=== PATIENT | female | born 1985 | race Caucasian/White ===

== ENCOUNTER → 2018-05-20 | Outpatient (CLI) | payer BC ==
[~2018-05-20] MED LIST: CLONAZEPAM0.5 MG PO; TRINTELLIX PO; ULTRAM50 MG PO
[2018-05-20 14:59] LABS: BASOPHILS % 0.4 % (0.0-1.0); EOSINOPHILS # (AUTO) 0.1 (0.0-0.4); EOSINOPHILS % 1.3 % (0.0-6.0); HEMATOCRIT 40.7 % (34.2-44.1); HEMOGLOBIN 13.6 g/dL (12.0-16.0); LYMPHOCYTES # (AUTO) 2.2 (1.0-3.2); LYMPHOCYTES % 26.5 % (18.0-39.1); MEAN CORPUSCULAR HEMOGLOBIN 31.5 pg (28-32); MEAN CORPUSCULAR HGB CONC 33.4 g/dL (31-35); MEAN CORPUSCULAR VOLUME 94.2 fL (81-99); MONOCYTES # (AUTO) 0.7 (0.2-0.8); MONOCYTES % 7.8 % (4.4-11.3); NEUTROPHILS # (AUTO) 5.3 (2.1-6.9); NEUTROPHILS % 63.3 % (38.7-80.0); PLATELET COUNT 211 x10e3/uL (140-360); RED BLOOD COUNT 4.32 x10e6/uL (3.6-5.1); RED CELL DISTRIBUTION WIDTH 12.4 % (11.7-14.4)
[2018-05-20 15:16] LABS: ALANINE AMINOTRANSFERASE 31 IU/L (0-55); ALBUMIN 3.9 g/dL (3.5-5.0); ALBUMIN/GLOBULIN RATIO 1.2 (0.8-2.0); ALKALINE PHOSPHATASE 59 IU/L (40-150); ANION GAP 12.9 mmol/L (8-16); BLOOD UREA NITROGEN 17 mg/dL (7-26); BUN/CREATININE RATIO 21 (6-25); CALCIUM 9.4 mg/dL (8.4-10.2); CARBON DIOXIDE 26 mmol/L (22-29); CHLORIDE 104 mmol/L (98-107); CREATININE, SERUM 0.81 mg/dL (0.57-1.11); EST GLOMERULAR FILTRATION RATE > 60 ML/MIN (60-); GLUCOSE 78 mg/dL (74-118); POTASSIUM 3.9 mmol/L (3.5-5.1); SODIUM 139 mmol/L (136-145)
== END ==
LOC: WCC 14:07
PROVIDERS: ATTEND Family Medicine
DX: Z13.9 Encounter for screening, unspecified (principal)
CPT/HCPCS: 36415; 80053; 84550; 85025; 85651; 86039

== ENCOUNTER 2018-12-23 12:37 | Emergency (ER) | payer BC ==
[~2018-12-23] VITALS: Ht 172.7 cm; Wt 104.3 kg
--- OUTSIDE RECORDS SUMMARY | 2018-12-23 13:04 | XMS REPORT | Continuity of Care Document ---
Author Author Johann [facility]nandez[facility] Interface Address Unknown Phone Unavailable Problems Problem Status Onset Date Classification Date Reported Comments Source Discharge Diagnosis: Left leg pain 09/26/2017 09/29/2017 [facility] Discharge Diagnosis: Fall 09/26/2017 09/29/2017 [facility] Discharge Diagnosis: Hip pain, left 09/26/2017 09/29/2017 [facility] FALL Active 09/25/2017 [facility] Medications Medication Details Route Status Patient Instructions Ordering Provider Order Date Source naproxen 500 mg oral tablet 500 mg=1 tab, PO, Q12H, PRN Pain, with food, X 10 day, # 20 tab, 0 Refill(s) Active 09/26/2017 [facility] cyclobenzaprine 5 mg oral tablet 5 mg=1 tab, PO, TID, PRN Muscle spasm, X 10 day, # 30 tab, 0 Refill(s) Active 09/26/2017 [facility] Ibuprofen 600 mg, 1 tab, Route: PO, Drug form: TAB, ONCE, Dosing Weight 115.227, kg, Priority: STAT, Start date: 09/25/17 23:39:00 BOAT CLEANER, Stop date: 09/25/17 23:39:00 CSTNotes: (Same as: Motrin) "Do Not Crush" Take with food. No Longer Active 09/26/2017 [facility] Acetaminophen 325 MG / Hydrocodone Bitartrate 5 MG Oral Tablet 1 tab, Route: PO, Drug Form: TAB, Dosing Weight 115.227, kg, ONCE, STAT, Start date: 09/25/17 23:39:00 BOAT CLEANER, Stop date: 09/25/17 23:39:00 CSTNotes: (Same as: [place] 325/5) Do not exceed 4gm/day of acetaminophen. No Longer Active 09/26/2017 [facility] Allergies, Adverse Reactions, Alerts Substance Category Reaction Severity Reaction type Status Date Reported Comments Source Immunizations Immunization Date Given Site Status Last Updated Comments Source Results Order Name Results Value Reference Range Date Interpretation Comments Source URINE CHEM U Preg Negative (09/26/17 12:53 AM) Negative 09/26/2017 [facility] Ankle 3 views DX Ankle 3 views DX Study: 3 views of left ankle joint History: Fall Comments: Normal bone mineralization. No acute fracture or dislocation. No radiopaque foreign bodies. IMPRESSION: No acute fracture or dislocation. 09/26/2017 - - Read by: Elise Gaviria MD Dictated Date/time: 09/26/17 00:43 Electronically Signed by: Elise Gaviria MD 09/26/17 00:45 FINAL REPORT [facility] Knee series 3 views DX Knee series 3 views DX Study: 3 views of left knee joint History: Fall Comments: Normal bone mineralization. No acute fracture or dislocation. No radiopaque foreign bodies. IMPRESSION: No acute fracture or dislocation. 09/26/2017 - - Read by: Elise Gaviria MD Dictated Date/time: 09/26/17 00:43 Electronically Signed by: Elise Gaviria MD 09/26/17 01:35 FINAL REPORT [facility] Femur series DX Femur series DX Study: 2 views of left femur History: Fall Comments: Normal bone mineralization. No acute fracture No radiopaque foreign bodies. IMPRESSION: Intact left femur 09/26/2017 - - Read by: Elise Gaviria MD Dictated Date/time: 09/26/17 00:48 Electronically Signed by: Elise Gaviria MD 09/26/17 00:53 FINAL REPORT [facility] Hip 2/3 views uni DX Hip 2/3 views uni DX Study: Frontal view of pelvis and 2 views of left hip joint History: Fall Comments: Normal bone mineralization. No acute fracture or dislocation. No radiopaque foreign bodies. IMPRESSION: No acute fracture or dislocation. 09/26/2017 - - Read by: Elise Gaviria MD Dictated Date/time: 09/26/17 00:48 Electronically Signed by: Elise Gaviria MD 09/26/17 00:59 FINAL REPORT [facility] Vital Signs Vital Sign Value Date Comments Source Systolic (mm Hg) 127 09/26/2017 [facility] Diastolic (mm Hg) 83 09/26/2017 [facility] Respitory Rate 16 09/26/2017 [facility] Heart Rate 80 09/26/2017 [facility] Weight 115.227 09/26/2017 [place] Height 172.72 cm 09/26/2017 [place] Temperature Oral (F) 97.8 F 09/26/2017 [place] BMI Calculated 38.63 09/26/2017 [place] Respitory Rate 18 09/26/2017 [place] Heart Rate 87 09/26/2017 [place] Systolic (mm Hg) 140 09/26/2017 [place] Diastolic (mm Hg) 94 09/26/2017 [facility] Encounters Location Location Details Encounter Type Encounter Number Reason For Visit Attending Provider ADM Date DC Date Status Source [facility] Emergency [id number] Steve Preciado 09/26/2017 09/26/2017 [facility] Procedures Procedure Code Date Perfomer Comments Source
--- OUTSIDE RECORDS SUMMARY | 2018-12-23 13:04 | XMS REPORT | Summary of Care ---
Author Author [facility] Organization [facility] Address Unknown Phone Unavailable Encounter SAIGE Stewart(BLAYNE) [id number] Date(s): 09/25/17 - 09/26/[address] [address]- Discharge Diagnosis: Left leg pain Discharge Diagnosis: Fall Discharge Diagnosis: Hip pain, left Discharge Disposition: Home or Self Care Attending Physician: Steve Preciado DO Vital Signs Most recent to 1 2 oldest [Reference Range]: Height 172.72 cm (09/25/17 11:33 PM) Temperature Oral 97.8 DegF [96.4-99.1 DegF] (09/25/17 11:33 PM) Blood Pressure 127/83 mmHg 140/94 mmHg [90-140/60-90 mmHg] (09/26/17 2:06 AM) (09/25/17 11:33 PM) Respiratory Rate 16 BRMIN 18 BRMIN [14-20 BRMIN] (09/26/17 2:06 AM) (09/25/17 11:33 PM) Peripheral Pulse 80 bpm 87 bpm Rate [60-100 bpm] (09/26/17 2:06 AM) (09/25/17 11:33 PM) Weight 115.227 kg (09/25/17 11:33 PM) Body Mass Index 38.63 m2 (09/25/17 11:33 PM) Problem List No data available for this section Allergies, Adverse Reactions, Alerts Substance Reaction Severity Status NKDA Active Medications acetaminophen-hydrocodone 325 mg-5 mg oral tablet 1 tab, Route: PO, Drug Form: TAB, Dosing Weight 115.227, kg, ONCE, STAT, Start d ate: 09/25/17 23:39:00 SUPERINTENDENT RECREATION, Stop date: 09/25/17 23:39:00 SUPERINTENDENT RECREATION Notes: (Same as: [place] 325/5) Do not exceed 4gm/day of acetaminophen. Start Date: 09/25/17 Stop Date: 09/26/17 Status: Completed cyclobenzaprine 5 mg oral tablet 5 mg=1 tab, PO, TID, PRN Muscle spasm, X 10 day, # 30 tab, 0 Refill(s) Start Date: 09/26/17 Stop Date: 10/06/17 Status: Ordered ibuprofen 600 mg, 1 tab, Route: PO, Drug form: TAB, ONCE, Dosing Weight 115.227, kg, Prior ity: STAT, Start date: 09/25/17 23:39:00 SUPERINTENDENT RECREATION, Stop date: 09/25/17 23:39:00 SUPERINTENDENT RECREATION Notes: (Same as: Motrin)"Do Not Crush" Take with food. Start Date: 09/25/17 Stop Date: 09/26/17 Status: Completed naproxen 500 mg oral tablet 500 mg=1 tab, PO, Q12H, PRN Pain, with food, X 10 day, # 20 tab, 0 Refill(s) Start Date: 09/26/17 Stop Date: 10/06/17 Status: Ordered Results URINE CHEM Most recent to 1 oldest [Reference Range]: U Preg [Negative] Negative (09/26/17 12:53 AM) Immunizations No data available for this section Procedures No data available for this section Social History Social History Type Response Smoking Status Never smoker; Exposure to Tobacco Smoke None; Cigarette Smoking Last 365 Days No; Reg Smoking Cessation Counseling No Assessment and Plan No data available for this section
[2018-12-23] MEDS ORDERED: ALBUTEROL/IPRATROPIUM 3 ML NEB NEB ONE (13:15)
[2018-12-23] MEDS ORDERED: PENICILLIN G BENZATHINE LA 1.2 MU TBX IM STA (13:27)
--- NOTE | 2018-12-23 13:46 | Diagnostic Imaging Report ---
EXAMINATION: CXR 2 VIEW - HOPD INDICATION: Body aches, cough COMPARISON: None FINDINGS: TUBES and LINES: None. LUNGS: Lungs are well inflated. Lungs are clear. There is no evidence of pneumonia or pulmonary edema. PLEURA: No pleural effusion or pneumothorax. HEART AND MEDIASTINUM: The cardiomediastinal silhouette is unremarkable. BONES AND SOFT TISSUES: No acute osseous abnormality. UPPER ABDOMEN: No free air under the diaphragm. IMPRESSION: No acute radiographic abnormality. Signed by: Dr. Adan Hankins MD on 12/23/2018 1:43 PM
[2018-12-23] MEDS ORDERED: PROMETHAZINE-D118 ML PO (14:52)
[2018-12-23] MEDS ORDERED: PREDNISONE20 MG PO (14:54)
== END 2018-12-23 14:30 | disposition home or self-care (01) ==
LOC: FSED 13:04
DX: R50.9 Fever, unspecified (principal); R05 Cough; J02.0 Streptococcal pharyngitis; J98.01 Acute bronchospasm
CPT/HCPCS: 71046; 83518; 87400; 99284; J0561

== ENCOUNTER → 2019-01-10 | Outpatient (CLI) | payer BC ==
[~2019-01-10] MED LIST changes: +ALBUTEROL0.63 MG/3 IH; +IOPAMIDOL 370 MG/ML 200 ML INFUS..BTL INJ ONE; +PREDNISONE20 MG PO; +PROMETHAZINE-D118 ML PO; +SODIUM CHLORIDE 0.9% 50ML 50 ML ONE; +inhaler IH
[2019-01-10 15:37] LABS: BLOOD UREA NITROGEN 12 mg/dL (7-26); BUN/CREATININE RATIO 16 (6-25); CREATININE, SERUM 0.77 mg/dL (0.57-1.11); EST GLOMERULAR FILTRATION RATE > 60 ML/MIN (60-)
--- NOTE | 2019-01-10 18:53 | Diagnostic Imaging Report ---
History: Lump in the right side of the neck, painful, difficult to swallow Comparison studies: None Technique: Axial, coronal and sagittal images from the skull base to the thoracic inlet. Coronal and sagittal images reconstructed from the axial data. Dose modulation, iterative reconstruction, and/or weight based adjustment of the mA/kV was utilized to reduce the radiation dose to as low as reasonably achievable. Intravenous contrast: 100 cc of Omnipaque 300. Findings: Airway: Patent. Soft tissues: Incidental 1 cm exophytic skin lesion in the right anterior cervical skin (series 3, image 53) is nonspecific Lymph nodes: No radiographically significant adenopathy. Vessels: Arteries and veins are patent. Glands (thyroid, parotid and submandibular): Normal in size and symmetric. No masses. Orbits: No abnormalities. Paranasal sinuses: Clear. Temporal bones: No abnormalities. Skull base and facial bones: Intact. Cervical spine: Reversal of the cervical lordosis centered at C5. Otherwise, no abnormalities. IMPRESSION: 1. No cervical abnormalities to explain patient's symptoms. 2. Incidental superficial lesion in the right anterior cervical skin should be visible on physical exam. Signed by: Dr. Brown Yeboah M.D. on 01/10/2019 6:50 PM
--- NOTE | 2019-01-12 17:29 | Operative Report ---
DATE OF PROCEDURE: 01/12/2019 SURGEON: Juni Young MD PREOPERATIVE DIAGNOSIS: Chronic tonsillitis. POSTOPERATIVE DIAGNOSIS: Chronic tonsillitis with asymmetric tonsil, right side being larger. OPERATIVE PROCEDURE: Tonsillectomy. ANESTHESIOLOGIST: Chepe Patricio M.D. INDICATIONS: This 33-year-old female has long standing history of chronic tonsillitis with recurrent sore throat. The patient also has asymmetric tonsil, right side being bigger for the past few years. She has been treated with multiple antibiotics with no improvement. A CT scan of the neck that was done before surgery, did not show any other abnormalities such as carotid aneurysm or other lymphadenopathy. It was decided that tonsillectomy and other necessary procedure will be beneficial for her. DESCRIPTION OF PROCEDURE: The patient was taken to the operating room, put under general anesthesia, endotracheally intubated. The patient was put in Kimber's position. McIvor mouth gag was inserted. Tonsillar fossas were injected with 0.5% Marcaine with 1:200,000 epinephrine. The right tonsil was retracted medially. A plane was created between the tonsil and tonsillar bed. Dissection was carried down to the inferior pole. Tonsil was . Similar procedure was carried out on the contralateral side. Hemostasis on tonsillar fossas were achieved using the suction cautery. Nasopharynx, oropharynx, and oral cavity were irrigated with copious amount of normal saline. The stomach was suctioned out at the end of the procedure. The patient tolerated above procedure well with estimated blood loss of about 100 mL. She was given 20 mg of Decadron intraoperatively. The patient was able to retransfer to recovery room in stable condition. Juni Young MD DKH/MODL /[id number] cc: Selwyn Ruiz MD
== END ==
LOC: CT 14:43
PROVIDERS: ATTEND Otolaryngology Otolaryngology/Facial Plastic Surgery
DX: R22.0 Localized swelling, mass and lump, head (principal)
CPT/HCPCS: 36415; 70491; 81025; 82565; 84520; Q9967

== ENCOUNTER → 2019-01-12 | Day surgery (SDC) | payer BC ==
[~2019-01-12] MED LIST changes: +ACETAMINOPHEN 1000 MG/100 ML IV ONE; +BUPIVACAINE 0.5%/EPI 30 ML SDV INJ ONE; +DEXAMETHASONE SOD PHOS 10 MG/1 ML VIAL ONE; +FENTANYL CITRATE/PF 100MCG/2 ML INJ ONE; +GLYCOPYRROLATE INJ 1MG/ 5 ML SYR ONE; +HYDROMORPHONE 2MG/ML 2 MG/ML ML ONE; -IOPAMIDOL 370 MG/ML 200 ML INFUS..BTL INJ ONE; +LIDOCAINE HCL 2% LOCAL INJ 5 ML SDV VIAL INJ ONE; +MIDAZOLAM HCL 2 MG/2 ML VIAL ONE; +NEOSTIGMINE 5 MG/5ML SYR ONE; +ONDANSETRON HCL INJ 2MG/ML 2ML 2 MG/ML VIAL ONE; +PROPOFOL IV EMULSION 10 MG/ML 20 ML VIAL ONE; +ROCURONIUM BROMIDE 10 MG/ML 5ML VIAL ONE; +SEVOFLURANE INHAL SOLN 250 ML PEN BTL ONE; -SODIUM CHLORIDE 0.9% 50ML 50 ML ONE
--- OUTSIDE RECORDS SUMMARY | 2019-01-12 06:42 | XMS REPORT ---
Author Author [facility] Address Unknown Phone Unavailable Care Team Providers Care Public Relations Name Role Phone Lacey HAYES Unavailable Unavailable Abhay AVALOS Unavailable Unavailable SKYLAR ARENAS Unavailable Unavailable Problems This patient has no known problems. Allergies, Adverse Reactions, Alerts This patient has no known allergies or adverse reactions. Medications This patient has no known medications. Results Test Description Test Time Test Comments Text Results Atomic Results Result Comments CT SOFT TISSUE NECK W 2019-01-10 18:42:00 [place] [address] Patient Name: MAG TAYLOR MR #: [id number] : 1985 Age/Sex: 33/F Req #: [id number] Adm Physician: Ordered by: TRACY HAYES MD Report #: [id number] Location: CT Room/Bed: Procedure: [id number] CT/CT SOFT TISSUE NECK W Exam Date: 01/10/19 Exam Time: 1540 REPORT STATUS: Signed History: Lump in the right side of the neck, painful, difficult to swallow Comparison studies: None Technique: Axial, coronal and sagittal images from the skull base to the thoracic inlet. Coronal and sagittal images reconstructed from the axial data. Dose modulation, iterative reconstruction, and/or weight based adjustment of the mA/kV was utilized to reduce the radiation dose to as low as reasonably achievable. Intravenous contrast: 100 cc of Omnipaque 300. Findings: Airway: Patent. Soft tissues: Incidental 1 cm exophytic skin lesion in the right anterior cervical skin (series 3, image 53) is nonspecific Lymph nodes: No radiographically significant adenopathy. Vessels: Arteries and veins are patent. Glands (thyroid, parotid and submandibular): Normal in size and symmetric. No masses. Orbits: No abnormalities. Paranasal sinuses: Clear. Temporal bones: No abnormalities. Skull base and facial bones: Intact. Cervical spine: Reversal of the cervical lordosis centered at C5. Otherwise, no abnormalities. IMPRESSION: 1. No cervical abnormalities to explain patient's symptoms. 2. Incidental superficial lesion in the right anterior cervical skin should be visible on physical exam. Signed by: Dr. Brown Yeboah M.D. on 01/10/2019 6:50 PM Dictated By: BROWN YEBOAH MD, MD 49 Transcribed By: LYNDSAY on 01/10/191849 COPY TO: TRACY HAYES MD CXR 2 VIEW - HOPD 2018-12-23 13:40:00 [place] [address] Patient Name: MAG TAYLOR MR #: [id number] : 1985 Age/Sex: 33/F Req #: [id number] Adm Physician: Ordered by: MICHELLE AVALOS MD Report #: [id number] Location: [facility] Room/Bed: Procedure: [id number] HOPD/CXR 2 VIEW - HOPD Exam Date: 12/23/18 Exam Time: 1326 REPORT STATUS: Signed EXAMINATION: CXR 2 VIEW - HOPD INDICATION: Body aches, cough COMPARISON: None FINDINGS: TUBES and LINES: None. LUNGS: Lungs are well inflated. Lungs are clear. There is no evidence of pneumonia or pulmonary edema. PLEURA: No pleural effusion or pneumothorax. HEART AND MEDIASTINUM: The cardiomediastinal silhouette is unremarkable. BONES AND SOFT TISSUES: No acute osseous abnormality. UPPER ABDOMEN: No free air under the diaphragm. IMPRESSION: No acute radiographic abnormality. Signed by: Dr. Anna Marie Escobedo MD on 12/23/2018 1:43 PM Dictated By: ANNA MARIE ESCOBEDO MD [id number] Transcribed By: LYNDSAY on 12/23/18 1343 COPY TO: MICHELLE AVALOS MD MRI KNEE LEFT WO [place] [address] Patient Name: MAG TAYLOR MR #: [id number] : 1985 Age/Sex: 32/F Req #: [id number] Adm Physician: Ordered by: SKYLAR ARENAS MD Report #: [id number] Location: MRI Room/Bed: Procedure: [id number] MRI/MRI KNEE LEFT WO Exam Date: 09/18/17 Exam Time: 919 REPORT STATUS: Signed TECHNIQUE: Magnetic resonance imaging of the LEFT KNEE was performed WITHOUT injected contrast. HISTORY: Knee pain, evaluate for internal drainage mid COMPARISON: None available. FINDINGS: LIGAMENTS AND TENDONS: ACL: Mucoid degeneration PCL: Intact Collateral ligaments: Intact Iliotibial band: Unremarkable Popliteal tendon: Intact Extensor mechanism: Proximal patellar tendinosis. JOINT: Menisci: Medial: Degenerative signal including the posterior root attachment. Lateral: Intact Articular Cartilage: Medial Compartment: No focal defect. Lateral Compartment: No focal defect. Patellofemoral Compartment: No focal defect. Joint Fluid: Small joint effusion and partially ruptured Jordan's cyst. BONE: No focal or infiltrative bone marrow replacing abnormality. No acute fracture. SOFT TISSUES: Otherwise, unremarkable. IMPRESSION: Medial meniscus degenerative signal without tear. Anterior cruciate ligament mucoid degeneration. Small joint effusion with partially ruptured Jordan's cyst. Proximal patellar tendinosis. Signed by: Dr. Doug Arshad M.D. on 09/20/2017 8:08 AM Dictated By: DOUG ARSHAD MD 7 Transcribed By: LYNDSAY on 09/20/17807 COPY TO: SKYLAR ARENAS MD
[2019-01-12 11:20] VITALS: BP 144/87
--- NOTE | 2019-01-12 17:29 | Operative Report ---
DATE OF PROCEDURE: 01/12/2019 SURGEON: Juni Young MD PREOPERATIVE DIAGNOSIS: Chronic tonsillitis. POSTOPERATIVE DIAGNOSIS: Chronic tonsillitis with asymmetric tonsil, right side being larger. OPERATIVE PROCEDURE: Tonsillectomy. ANESTHESIOLOGIST: Chepe Patricio M.D. INDICATIONS: This 33-year-old female has long standing history of chronic tonsillitis with recurrent sore throat. The patient also has asymmetric tonsil, right side being bigger for the past few years. She has been treated with multiple antibiotics with no improvement. A CT scan of the neck that was done before surgery, did not show any other abnormalities such as carotid aneurysm or other lymphadenopathy. It was decided that tonsillectomy and other necessary procedure will be beneficial for her. DESCRIPTION OF PROCEDURE: The patient was taken to the operating room, put under general anesthesia, endotracheally intubated. The patient was put in Kimber's position. McIvor mouth gag was inserted. Tonsillar fossas were injected with 0.5% Marcaine with 1:200,000 epinephrine. The right tonsil was retracted medially. A plane was created between the tonsil and tonsillar bed. Dissection was carried down to the inferior pole. Tonsil was . Similar procedure was carried out on the contralateral side. Hemostasis on tonsillar fossas were achieved using the suction cautery. Nasopharynx, oropharynx, and oral cavity were irrigated with copious amount of normal saline. The stomach was suctioned out at the end of the procedure. The patient tolerated above procedure well with estimated blood loss of about 100 mL. She was given 20 mg of Decadron intraoperatively. The patient was able to retransfer to recovery room in stable condition. Juni Young MD DKH/MODL /[id number] cc: Selwyn Ruiz MD
== END | disposition home or self-care (01) ==
LOC: OR 06:40
PROVIDERS: ATTEND Otolaryngology Otolaryngology/Facial Plastic Surgery
DX: J35.01 Chronic tonsillitis (principal); Z87.442 Personal history of urinary calculi; J45.909 Unspecified asthma, uncomplicated; F32.9 Major depressive disorder, single episode, unspecified; F41.9 Anxiety disorder, unspecified
CPT/HCPCS: 42826; 81025; 88304; J0131; J1100; J1170; J2001; J2250; J2405; J2704; J3490; 36415; 70491; 82565; 84520; Q9967

== ENCOUNTER 2019-08-02 16:46 | Emergency (ER) | payer BC ==
[~2019-08-02] VITALS: Ht 172.7 cm; Wt 104.3 kg
[~2019-08-02 16:46] MED LIST changes: -ACETAMINOPHEN 1000 MG/100 ML IV ONE; -BUPIVACAINE 0.5%/EPI 30 ML SDV INJ ONE; -DEXAMETHASONE SOD PHOS 10 MG/1 ML VIAL ONE; -FENTANYL CITRATE/PF 100MCG/2 ML INJ ONE; -GLYCOPYRROLATE INJ 1MG/ 5 ML SYR ONE; -HYDROMORPHONE 2MG/ML 2 MG/ML ML ONE; -LIDOCAINE HCL 2% LOCAL INJ 5 ML SDV VIAL INJ ONE; -MIDAZOLAM HCL 2 MG/2 ML VIAL ONE; -NEOSTIGMINE 5 MG/5ML SYR ONE; -ONDANSETRON HCL INJ 2MG/ML 2ML 2 MG/ML VIAL ONE; -PROPOFOL IV EMULSION 10 MG/ML 20 ML VIAL ONE; -ROCURONIUM BROMIDE 10 MG/ML 5ML VIAL ONE; -SEVOFLURANE INHAL SOLN 250 ML PEN BTL ONE
--- OUTSIDE RECORDS SUMMARY | 2019-08-02 16:48 | XMS REPORT | Continuity of Care Document ---
Author Author [email or web address] [facility] [email or web address] Address Unknown Phone Unavailable Care Team Providers Care Dental Technician Instructor Name Role Phone [employer] Information MAZ Unavailable Unavailable Problems Problem Status Onset Date Classification Date Reported Comments Source Pain in left leg 09/26/2017 09/29/2017 [place] Unspecified fall, initial encounter 09/26/2017 09/29/2017 [place] Pain in left hip 09/26/2017 09/29/2017 [place] FALL Active 09/25/2017 [place] Vitamin D deficiency Active Problem 05/30/2019 Alysha Najam Family history of psoriasis Active Problem 05/30/2019 Alysha Najam Psoriatic arthritis Active Problem 05/30/2019 Alysha Najam Pain in right wrist Active Diagnosis 05/30/2019 Alysha Najam Stiffness of right wrist joint Active Diagnosis 05/30/2019 Alysha Najam Psoriasis vulgaris Active Problem 05/30/2019 Alysha Najam Pain, joint, multiple sites Active Diagnosis 05/25/2019 Alysha Najam Pain of left hand Active Diagnosis 05/25/2019 Alysha Najam Pain in right hand Active Diagnosis 05/25/2019 Alysha Najam Swelling of joint, wrist, left Active Diagnosis 05/30/2019 Alysha Najam Pain in left wrist Active Diagnosis 05/30/2019 Alysha Najam Stiffness of left wrist joint Active Diagnosis 05/30/2019 Alysha Najam Medications Medication Details Route Status Patient Instructions Ordering Provider Order Date Source Zorvolex 1 tab(s) with food as needed Orally Active 35 MG Orally Twice a day Najam 05/23/2019 Alysha Najam Meloxicam 1 tab(s) with food as needed Orally Active 15 MG Orally Once a day Najam 05/23/2019 Alysha Najam Ergocalciferol 1 capsule Orally Active 18267 UNIT Orally q week Najam 05/23/2019 Alysha Najam Meloxicam 1 tab(s) with food as needed Orally Active 15 MG Orally Once a day Najam 04/24/2019 Alysha Ramos D-Methorphan Hb/Prometh Hcl (Promethazine-Dm Syrup) 118 Ml Syrup Every 6 Hours as needed for Cough Active [place] 12/23/2018 [facility] Prednisone 20 Mg Tab Daily Active [place]am 12/23/2018 [facility] naproxen 500 mg oral tablet 500 mg=1 tab, PO, Q12H, PRN Pain, with food, X 10 day, # 20 tab, 0 Refill(s) Active 09/26/2017 [facility] cyclobenzaprine 5 mg oral tablet 5 mg=1 tab, PO, TID, PRN Muscle spasm, X 10 day, # 30 tab, 0 Refill(s) Active 09/26/2017 [facility] Ibuprofen 600 mg, 1 tab, Route: PO, Drug form: TAB, ONCE, Dosing Weight 115.227, kg, Priority: STAT, Start date: 09/25/17 23:39:00 SALES OPERATIONS CONSULTANT, Stop date: 09/25/17 23:39:00 CSTNotes: (Same as: Motrin) "Do Not Crush" Take with food. No Longer Active 09/26/2017 [facility] Acetaminophen 325 MG / Hydrocodone Bitartrate 5 MG Oral Tablet 1 tab, Route: PO, Drug Form: TAB, Dosing Weight 115.227, kg, ONCE, STAT, Start date: 09/25/17 23:39:00 SALES OPERATIONS CONSULTANT, Stop date: 09/25/17 23:39:00 CSTNotes: (Same as: [place] 325/5) Do not exceed 4gm/day of acetaminophen. No Longer Active 09/26/2017 [facility] Clonazepam 1 tablet Orally Active 1 MG Orally Once a day Rachel Ramos Clonazepam 0.5 Mg Tablet As Needed Active [facility] Tramadol Hcl (Ultram) 50 Mg Tablet As Needed Active [facility] Trintellix Daily Active [facility] Allergies, Adverse Reactions, Alerts Substance Category Reaction Severity Reaction type Status Date Reported Comments Source N.K.D.A. Adverse Reaction Info Not Available Adverse Reaction Active 05/23/2019 Alysha Fields Immunizations No Data Provided for This Section Results Order Name Results Value Reference Range Date Interpretation Comments Source Serum nuclear antibody titer by immunofluorescence Negative . 05/20/2018 [facility] Blood leukocytes automated count (number/volume) 8.44 4.8 - 10.8 05/20/2018 [facility] Blood erythrocytes automated count (number/volume) 4.32 3.6 - 5.1 05/20/2018 [facility] Blood hemoglobin measurement (moles/volume) 13.6 12.0 - 16.0 05/20/2018 [facility] Automated blood hematocrit (volume fraction) 40.7 34.2 - 44.1 05/20/2018 [facility] Automated erythrocyte mean corpuscular volume 94.2 81 - 99 05/20/2018 [facility] Automated erythrocyte mean corpuscular hemoglobin (mass per erythrocyte) 31.5 28 - 32 05/20/2018 [facility] Automated erythrocyte mean corpuscular hemoglobin concentration measurement (mass/volume) 33.4 31 - 35 05/20/2018 [facility] RDW BldCo-Rto 12.4 11.7 - 14.4 05/20/2018 [facility] Automated blood platelet count (count/volume) 211 140 - 360 05/20/2018 [facility] Automated blood segmented neutrophil count as percentage of total leukocytes 63.3 38.7 - 80.0 05/20/2018 [facility] Automated blood lymphocyte count as percentage ot total leukocytes 26.5 18.0 - 39.1 05/20/2018 [facility] Automated blood monocyte count as percentage of total leukocytes 7.8 4.4 - 11.3 05/20/2018 [facility] Automated blood eosinophil count as percentage of total leukocytes 1.3 0.0 - 6.0 05/20/2018 [facility] Automated blood basophil count as percentage of total leukocytes 0.4 0.0 - 1.0 05/20/2018 [facility] IM GRANULOCYTES % 0.7 0.0 - 1.0 05/20/2018 [facility] Automated blood neutrophil count 5.3 2.1 - 6.9 05/20/2018 [facility] Blood lymphocytes count (number/volume) 2.2 1.0 - 3.2 05/20/2018 [facility] Blood monocytes automated count (number/volume) 0.7 0.2 - 0.8 05/20/2018 [facility] Automated blood eosinophil count 0.1 0.0 - 0.4 05/20/2018 [facility] Automated blood basophil count (count/volume) 0.0 0.0 - 0.1 05/20/2018 [facility] Absolute Immature Granulocyte (auto 0.06 0 - 0.1 05/20/2018 [facility] Erythrocyte sedimentation rate by Westergren method 12 0 - 20 05/20/2018 [facility] Serum or plasma sodium measurement (moles/volume) 139 136 - 145 05/20/2018 [facility] Serum or plasma potassium measurement (moles/volume) 3.9 3.5 - 5.1 05/20/2018 [facility] Serum or plasma chloride measurement (moles/volume) 104 98 - 107 05/20/2018 [facility] Serum or plasma carbon dioxide, total measurement (moles/volume) 26 22 - 29 05/20/2018 [facility] Serum or plasma anion gap 12.9 8 - 16 05/20/2018 [facility] Serum or plasma urea nitrogen measurement (mass/volume) 17 7 - 26 05/20/2018 [facility] Serum or plasma creatinine measurement (mass/volume) 0.81 0.57 - 1.11 05/20/2018 [facility] Serum or plasma urea nitrogen/creatinine mass ratio 21 6 - 25 05/20/2018 [facility] Estimated glomerular filtration rate (GFR) determination > 60 60 05/20/2018 [facility] Glucose measurement 78 74 - 118 05/20/2018 [facility] Serum or plasma calcium measurement (mass/volume) 9.4 8.4 - 10.2 05/20/2018 [facility] Serum or plasma uric acid measurement (mass/volume) 6.6 2.6 - 8.0 05/20/2018 [facility] Serum or plasma total bilirubin measurement (mass/volume) 0.4 0.2 - 1.2 05/20/2018 [facility] Aspartate Amino Transf (AST/SGOT) 21 5 - 34 05/20/2018 [facility] Serum or plasma alanine aminotransferase measurement (enzymatic activity/volume) 31 0 - 55 05/20/2018 [facility] Serum or plasma protein measurement (mass/volume) 7.2 6.5 - 8.1 05/20/2018 [facility] Serum or plasma albumin measurement (mass/volume) 3.9 3.5 - 5.0 05/20/2018 [facility] Plasma globulin measurement (mass/volume) 3.3 2.3 - 3.5 05/20/2018 [facility] Serum or plasma albumin/globulin mass ratio 1.2 0.8 - 2.0 05/20/2018 [facility] Serum or plasma alkaline phosphatase measurement (enzymatic activity/volume) 59 40 - 150 05/20/2018 [facility] URINE CHEM U Preg Negative (09/26/17 12:53 AM) Negative 09/26/2017 [facility] Pathology Reports No Data Provided for This Section Diagnostic Reports Report Value Date Source Ankle 3 views DX Study: 3 views of left ankle joint History: Fall Comments: Normal bone mineralization. No acute fracture or dislocation. No radiopaque foreign bodies. IMPRESSION: No acute fracture or dislocation. 09/26/2017 [facility] Knee series 3 views DX Study: 3 views of left knee joint History: Fall Comments: Normal bone mineralization. No acute fracture or dislocation. No radiopaque foreign bodies. IMPRESSION: No acute fracture or dislocation. 09/26/2017 [facility] Femur series DX Study: 2 views of left femur History: Fall Comments: Normal bone mineralization. No acute fracture No radiopaque foreign bodies. IMPRESSION: Intact left femur 09/26/2017 [facility] Hip 2/3 views uni DX Study: Frontal view of pelvis and 2 views of left hip joint History: Fall Comments: Normal bone mineralization. No acute fracture or dislocation. No radiopaque foreign bodies. IMPRESSION: No acute fracture or dislocation. 09/26/2017 [facility] Consultation Notes No Data Provided for This Section Discharge Summaries No Data Provided for This Section History and Physicals No Data Provided for This Section Vital Signs Vital Sign Value Date Comments Source Height 68 05/23/2019 Alysha Najam Diastolic (mm Hg) 75 05/23/2019 Alysha Najam Systolic (mm Hg) 124 05/23/2019 Alysha Najam Weight 285 05/23/2019 Alysha Najam Height 68 04/24/2019 Alysha Najam Diastolic (mm Hg) 74 04/24/2019 Alysha Najam Systolic (mm Hg) 130 04/24/2019 Alysha Najam Weight 288 04/24/2019 Alysha Najam Systolic (mm Hg) 127 09/26/2017 [place] Diastolic (mm Hg) 83 09/26/2017 [place] Respitory Rate 16 09/26/2017 [place] Heart Rate 80 09/26/2017 [place] Weight 115.227 09/26/2017 [place] Height 172.72 cm 09/26/2017 [place] Temperature Oral (F) 97.8 F 09/26/2017 [facility] BMI Calculated 38.63 09/26/2017 [place] Respitory Rate 18 09/26/2017 [place] Heart Rate 87 09/26/2017 [place] Systolic (mm Hg) 140 09/26/2017 [place] Diastolic (mm Hg) 94 09/26/2017 [facility] Encounters Location Location Details Encounter Type Encounter Number Reason For Visit Attending Provider ADM Date DC Date Status Source [facility] [id number] Steve Preciado 09/26/2017 09/26/2017 [facility] Registered Clinic [id number] MYESHA ADDISON M.D. 05/20/2018 [facility] Departed Emergency Room [id number] MICHELLE AVALOS MD 12/23/2018 12/23/2018 [facility] Procedures No Data Provided for This Section Assessment and Plan No Data Provided for This Section Plan of Care Plan of Care Date Source Discharge Date 12/23/18 2:30pm Disposition HOME, SELF-CARE Condition at Discharge Stable Instructions/Education Provided Bronchospasm Strep Throat - Adult Forms Provided Work/School Excuse Prescriptions See Medication Section Referrals MYESHA ADDISON M.D. Order Date: Call for an appointment Address: [address] [place] [address] [id number] Additional Instructions/Education Albuterol Nebulizer treatments or Albuterol Inhaler - 2 puffs every 4 hours, for cough and wheezing. You may space these farther apart, once your cough has improved. Fluticasone Inhaler (Inhaled Steroid) - 2 puffs twice daily, rinse mouth after use. Would do this for 10 - 14 days, and then go down to once daily x 4 days, then stop. Drink LOTS of water Take the Prednisone, as prescribed. Take it first thing in the morning. Though, take first dose today, when you get it. Use the Promethazine Cough Syrup at bedtime, to help with cough and sleep. 12/23/2018 [facility] Social History Social History Date Source Smoking Status Start Date Stop Date Never Smoker 12/23/2018 [facility] Social History TypeResponse Smoking Status Never smoker; Exposure to Tobacco Smoke None; Cigarette Smoking Last 365 Days No; Reg Smoking Cessation Counseling No 09/26/2017 [facility] Family [facility] No Data Provided for This Section Advance Directives Order Name Results Value Date Source Advance Directives Advance Directives Directive Response Recorded Date/Time Does the patient have an advance directive? No 01/16/15 10:29am If yes, is advance directive on file with [facility]? No 01/16/15 10:29am If not on file with [facility] will patient provide a copy? No 01/16/15 10:29am Do you have a Directive to Physician? No 12/23/18 1:33pm Do you have a Medical Power of Painter Maintenance? No 12/23/18 1:33pm Do you have an out of hospital Do Not Resuscitate Order? No 12/23/18 1:33pm Do you have any special needs we should be aware of? No 12/23/18 1:33pm Do you have a support person here with you today? No 12/23/18 1:34pm Did patient receive Notice of Privacy Practices? Yes 12/23/18 1:34pm Did patient receive patient rights and responsibilities? Yes 12/23/18 1:34pm 12/23/2018 [facility] Functional Status No Data Provided for This Section
--- OUTSIDE RECORDS SUMMARY | 2019-08-02 16:49 | XMS REPORT ---
Author Author Alysha Ramos Organization [employer] Address Unknown Phone Unavailable Care Team Providers Care Yarn Tester Name Role Phone Alysha Ramos CP Unavailable Allergies No Known Allergies Problems Problem Type Condition Code Onset Dates Condition Status Problem Vitamin D deficiency E55.9 Active Problem Family history of psoriasis Z84.0 Active Problem Psoriatic arthritis L40.50 Active Assessment Pain in right wrist M25.531 Active Assessment Stiffness of right wrist joint M25.631 Active Problem Psoriasis vulgaris L40.0 Active Medications No Known Medications Results No Known Results Summary Purpose [employer] Submission
--- OUTSIDE RECORDS SUMMARY | 2019-08-02 16:49 | XMS REPORT ---
Author Author Alysha Ramos Organization [employer] Address Unknown Phone Unavailable Care Team Providers Care Marketing Administrative Assistant Name Role Phone Alysha Ramos CP Unavailable Allergies, Adverse Reactions, Alerts Substance Reaction Event Type N.K.D.A. Info Not Available Non Drug Allergy Problems Problem Type Condition Code Onset Dates Condition Status Assessment Psoriasis vulgaris L40.0 Active Assessment Pain in right hand M79.641 Active Assessment Pain, joint, multiple sites M25.50 Active Assessment Vitamin D deficiency E55.9 Active Assessment Family history of psoriasis Z84.0 Active Problem Vitamin D deficiency E55.9 Active Problem Family history of psoriasis Z84.0 Active Problem Psoriatic arthritis L40.50 Active Assessment Psoriatic arthritis L40.50 Active Assessment Pain of left hand M79.642 Active Problem Psoriasis vulgaris L40.0 Active Medications Medication Code System Code Instructions Start Date End Date Status Dosage Zorvolex [facility] 77334804480 35 MG Orally Twice a day May 23, 2019 Active 1 tab(s) with food as needed Clonazepam ND 92791188554 1 MG Orally Once a day Active 1 tablet Meloxicam ND 77941945065 15 MG Orally Once a day May 23, 2019 Inactive 1 tab(s) with food as needed Ergocalciferol [facility] 87494812737 20250 UNIT Orally q week May 23, 2019 Active 1 capsule Vital Signs Date/Time: May 23, 2019 Height 68 in Blood Pressure Diastolic 75 mm Hg Blood Pressure Systolic 124 mm Hg Weight 285 lbs Results No Known Results Summary Purpose [employer] Submission
--- OUTSIDE RECORDS SUMMARY | 2019-08-02 16:49 | XMS REPORT ---
Author Author Alysha Ramos Organization [employer] Address Unknown Phone Unavailable Care Team Providers Care Contract Negotiation Manager Name Role Phone Alysha Ramos CP Unavailable Allergies No Known Allergies Problems Problem Type Condition Code Onset Dates Condition Status Assessment Swelling of joint, wrist, left M25.432 Active Problem Vitamin D deficiency E55.9 Active Problem Family history of psoriasis Z84.0 Active Problem Psoriatic arthritis L40.50 Active Assessment Pain in left wrist M25.532 Active Assessment Stiffness of left wrist joint M25.632 Active Problem Psoriasis vulgaris L40.0 Active Medications No Known Medications Results No Known Results Summary Purpose [employer] Submission
--- OUTSIDE RECORDS SUMMARY | 2019-08-02 16:49 | XMS REPORT ---
Author Author Alysha Ramos Organization [employer] Address Unknown Phone Unavailable Care Team Providers Care Guest Service Supervisor Name Role Phone Alysha Ramos CP Unavailable Allergies, Adverse Reactions, Alerts Substance Reaction Event Type N.K.D.A. Info Not Available Non Drug Allergy Problems Problem Type Condition Code Onset Dates Condition Status Assessment Family history of psoriasis Z84.0 Active Problem Family history of psoriasis Z84.0 Active Problem Psoriasis vulgaris L40.0 Active Assessment Pain, joint, multiple sites M25.50 Active Assessment Psoriasis vulgaris L40.0 Active Assessment Pain of left hand M79.642 Active Assessment Pain in right hand M79.641 Active Medications Medication Code System Code Instructions Start Date End Date Status Dosage Meloxicam [facility] 97631122320 15 MG Orally Once a day April 24, 2019 Jul 23, 2019 Active 1 tab(s) with food as needed Clonazepam ND 81248138177 1 MG Orally Once a day Active 1 tablet Vital Signs Date/Time: April 24, 2019 Height 68 in Blood Pressure Diastolic 74 mm Hg Blood Pressure Systolic 130 mm Hg Weight 288 lbs Results No Known Results Summary Purpose [employer] Submission
--- OUTSIDE RECORDS SUMMARY | 2019-08-02 16:56 | XMS REPORT | Continuity of Care Document ---
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 Phone [employer] Unavailable Unavailable Problems Problem Status Onset Date Classification Date Reported Comments Source Pain in left leg 09/26/2017 09/29/2017 [place] Unspecified fall, initial encounter 09/26/2017 09/29/2017 [place] Pain in left hip 09/26/2017 09/29/2017 [place] FALL Active 09/25/2017 [place] Vitamin D deficiency Active Problem 05/30/2019 Alysha [...] Alysha Najam Ergocalciferol 1 capsule Orally Active 26881 UNIT Orally q week Najam 05/23/2019 Alysha Najam Meloxicam 1 tab(s) with food as needed Orally Active 15 MG Orally Once a day Najam 04/24/2019 Alysha Ramos D-Methorphan Hb/Prometh Hcl (Promethazine-Dm Syrup) 118 Ml Syrup Every 6 Hours as needed for Cough Active [place] 12/23/2018 [facility] Prednisone 20 Mg Tab Daily Active [place] 12/23/2018 [facility] naproxen 500 mg oral tablet 500 mg=1 tab, PO, Q12H, PRN Pain, with food, X 10 day, # 20 tab, 0 Refill(s) Active 09/26/2017 [facility] cyclobenzaprine 5 mg oral tablet 5 mg=1 tab, PO, TID, PRN Muscle spasm, X 10 day, # 30 tab, 0 Refill(s) Active 09/26/2017 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 No Longer Active 09/26/2017 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 No Longer Active 09/26/2017 [facility] Clonazepam 1 tablet Orally Active 1 MG Orally Once a day Rachel Ramos Clonazepam 0.5 Mg Tablet As Needed Active [facility] Tramadol Hcl (Ultram) 50 Mg Tablet As Needed Active [facility] Trintellix Daily Active [facility] Allergies, Adverse Reactions, Alerts Substance Category Reaction Severity Reaction type Status Date Reported Comments Source N.K.D.A. Adverse Reaction Info Not Available Adverse Reaction Active 05/23/2019 Alysha Fields Immunizations No Data Provided for This Section Results Order Name Results Value Reference Range Date Interpretation Comments Source Serum nuclear antibody titer by immunofluorescence Negative . 05/20/2018 [facility] Blood leukocytes automated count (number/volume) 8.44 4.8 - 10.8 05/20/2018 [facility] Blood erythrocytes automated count (number/volume) 4.32 3.6 - 5.1 05/20/2018 [facility] Blood hemoglobin measurement (moles/volume) 13.6 12.0 - 16.0 05/20/2018 [facility] Automated blood hematocrit (volume fraction) 40.7 34.2 - 44.1 05/20/2018 [facility] Automated erythrocyte mean corpuscular volume 94.2 81 - 99 05/20/2018 [facility] Automated erythrocyte mean corpuscular hemoglobin (mass per erythrocyte) 31.5 28 - 32 05/20/2018 [facility] Automated erythrocyte mean corpuscular hemoglobin concentration measurement (mass/volume) 33.4 31 - 35 05/20/2018 [facility] RDW BldCo-Rto 12.4 11.7 - 14.4 05/20/2018 [facility] Automated blood platelet count (count/volume) 211 140 - 360 05/20/2018 [facility] Automated blood segmented neutrophil count as percentage of total leukocytes 63.3 38.7 - 80.0 05/20/2018 [facility] Automated blood lymphocyte count as percentage ot total leukocytes 26.5 18.0 - 39.1 05/20/2018 [facility] Automated blood monocyte count as percentage of total leukocytes 7.8 4.4 - 11.3 05/20/2018 [facility] Automated blood eosinophil count as percentage of total leukocytes 1.3 0.0 - 6.0 05/20/2018 [facility] Automated blood basophil count as percentage of total leukocytes 0.4 0.0 - 1.0 05/20/2018 [facility] IM GRANULOCYTES % 0.7 0.0 - 1.0 05/20/2018 [facility] Automated blood neutrophil count 5.3 2.1 - 6.9 05/20/2018 [facility] Blood lymphocytes count (number/volume) 2.2 1.0 - 3.2 05/20/2018 [facility] Blood monocytes automated count (number/volume) 0.7 0.2 - 0.8 05/20/2018 [facility] Automated blood eosinophil count 0.1 0.0 - 0.4 05/20/2018 [facility] Automated blood basophil count (count/volume) 0.0 0.0 - 0.1 05/20/2018 [facility] Absolute Immature Granulocyte (auto 0.06 0 - 0.1 05/20/2018 [facility] Erythrocyte sedimentation rate by Westergren method 12 0 - 20 05/20/2018 [facility] Serum or plasma sodium measurement (moles/volume) 139 136 - 145 05/20/2018 [facility] Serum or plasma potassium measurement (moles/volume) 3.9 3.5 - 5.1 05/20/2018 [facility] Serum or plasma chloride measurement (moles/volume) 104 98 - 107 05/20/2018 [facility] Serum or plasma carbon dioxide, total measurement (moles/volume) 26 22 - 29 05/20/2018 [facility] Serum or plasma anion gap 12.9 8 - 16 05/20/2018 [facility] Serum or plasma urea nitrogen measurement (mass/volume) 17 7 - 26 05/20/2018 [facility] Serum or plasma creatinine measurement (mass/volume) 0.81 0.57 - 1.11 05/20/2018 [facility] Serum or plasma urea nitrogen/creatinine mass ratio 21 6 - 25 05/20/2018 [facility] Estimated glomerular filtration rate (GFR) determination > 60 60 05/20/2018 [facility] Glucose measurement 78 74 - 118 05/20/2018 [facility] Serum or plasma calcium measurement (mass/volume) 9.4 8.4 - 10.2 05/20/2018 [facility] Serum or plasma uric acid measurement (mass/volume) 6.6 2.6 - 8.0 05/20/2018 [facility] Serum or plasma total bilirubin measurement (mass/volume) 0.4 0.2 - 1.2 05/20/2018 [facility] Aspartate Amino Transf (AST/SGOT) 21 5 - 34 05/20/2018 [facility] Serum or plasma alanine aminotransferase measurement (enzymatic activity/volume) 31 0 - 55 05/20/2018 [facility] Serum or plasma protein measurement (mass/volume) 7.2 6.5 - 8.1 05/20/2018 [facility] Serum or plasma albumin measurement (mass/volume) 3.9 3.5 - 5.0 05/20/2018 [facility] Plasma globulin measurement (mass/volume) 3.3 2.3 - 3.5 05/20/2018 [facility] Serum or plasma albumin/globulin mass ratio 1.2 0.8 - 2.0 05/20/2018 [facility] Serum or plasma alkaline phosphatase measurement (enzymatic activity/volume) 59 40 - 150 05/20/2018 [facility] URINE CHEM U Preg Negative (09/26/17 12:53 AM) Negative 09/26/2017 [facility] Pathology Reports No Data Provided for This Section Diagnostic Reports Report Value Date Source Ankle 3 views DX Study: 3 views of left ankle joint History: Fall Comments: Normal bone mineralization. No acute fracture or dislocation. No radiopaque foreign bodies. IMPRESSION: No acute fracture or dislocation. 09/26/2017 [facility] Knee series 3 views DX Study: 3 views of left knee joint History: Fall Comments: Normal bone mineralization. No acute fracture or dislocation. No radiopaque foreign bodies. IMPRESSION: No acute fracture or dislocation. 09/26/2017 [facility] Femur series DX Study: 2 views of left femur History: Fall Comments: Normal bone mineralization. No acute fracture No radiopaque foreign bodies. IMPRESSION: Intact left femur 09/26/2017 [facility] Hip 2/3 views uni DX Study: Frontal view of pelvis and 2 views of left hip joint History: Fall Comments: Normal bone mineralization. No acute fracture or dislocation. No radiopaque foreign bodies. IMPRESSION: No acute fracture or dislocation. 09/26/2017 [facility] Consultation Notes No Data Provided for This [...] Alysha Najam Systolic (mm Hg) 127 09/26/2017 [place] Diastolic (mm Hg) 83 09/26/2017 [place] Respitory Rate 16 09/26/2017 [place] Heart Rate 80 09/26/2017 [place] Weight 115.227 09/26/2017 [place] Height 172.72 cm 09/26/2017 [place] Temperature Oral (F) 97.8 F 09/26/2017 [facility] BMI Calculated 38.63 09/26/2017 [place] Respitory Rate 18 09/26/2017 [place] Heart Rate 87 09/26/2017 [place] Systolic (mm Hg) 140 09/26/2017 [place] Diastolic (mm Hg) 94 09/26/2017 [facility] Encounters Location Location Details Encounter Type Encounter Number Reason For Visit Attending Provider ADM Date DC Date Status Source [facility] [id number] Steve Preciado 09/26/2017 09/26/2017 [facility] Registered Clinic [id number] MYESHA ADDISON M.D. 05/20/2018 [facility] Departed Emergency Room [id number] MICHELLE AVALOS MD 12/23/2018 12/23/2018 [facility] Procedures No Data Provided for This Section Assessment and Plan No Data Provided for This Section Plan of Care Plan of Care Date Source Discharge Date 12/23/18 2:30pm Disposition HOME, SELF-CARE Condition at Discharge Stable Instructions/Education Provided Bronchospasm Strep Throat - Adult Forms Provided Work/School Excuse Prescriptions See Medication Section Referrals MYESHA ADDISON M.D. Order Date: Call for an appointment Address: [address] [place] [address] [id number] Additional Instructions/Education Albuterol Nebulizer treatments or Albuterol [...] to help with cough and sleep. 12/23/2018 [facility] Social History Social History Date Source Smoking Status Start Date Stop Date Never Smoker 12/23/2018 [facility] Social History TypeResponse Smoking Status Never smoker; Exposure to Tobacco Smoke None; Cigarette Smoking Last 365 Days No; Reg Smoking Cessation Counseling No 09/26/2017 [facility] Family [facility] No Data Provided for This Section Advance Directives Order Name Results Value Date Source Advance Directives Advance Directives Directive Response Recorded Date/Time Does the patient have an advance directive? No 01/16/15 10:29am If yes, is advance directive on file with [facility]? No 01/16/15 10:29am If not on file with [facility] will patient provide a copy? No 01/16/15 10:29am Do you have a Directive to Physician? No 12/23/18 1:33pm Do you have a Medical Power of Optical Glass Sawyer? No 12/23/18 1:33pm Do you have an [...] rights and responsibilities? Yes 12/23/18 1:34pm 12/23/2018 [facility] Functional Status No Data Provided for This Section
[2019-08-02] MEDS ORDERED: DEXAMETHASONE SOD PHOS 10 MG/1 ML VIAL IM ONE (17:00)
[2019-08-02] MEDS ORDERED: HYDROCODONE/APAP 7.5MG-325MG 1 EA TAB PO PRN (17:00)
[2019-08-02] MEDS ORDERED: KETOROLAC TROMETHAMINE 60 MG/2 ML VIAL IM ONE (17:00)
[2019-08-02] MEDS ORDERED: CYCLOBENZAPRINE HCL 10 MG TAB PO ONE (17:00)
--- NOTE | 2019-08-02 18:21 | Diagnostic Imaging Report ---
Radiographs of the lumbar spine - 5 views with bilateral obliques HISTORY: Pain COMPARISON: None available. FINDINGS: Bones: No acute displaced fracture. Osseous alignment is within normal limits. Joints: Minimal scattered degenerative change. No pars interarticularis defects Soft tissues: The soft tissues appear unremarkable. IMPRESSION: Minimal scattered degenerative change. No pars interarticularis defects Signed by: Dr. Jordin Ibarra M.D. on 08/02/2019 6:12 PM
[2019-08-02 19:01] VITALS: BP 147/85
== END 2019-08-02 19:00 | disposition home or self-care (01) ==
LOC: ER 16:54
DX: M54.5 Low back pain (principal); S39.012A Strain of muscle, fascia and tendon of lower back, initial encounter; X50.0XXA Overexertion from strenuous movement or load, initial encounter; Y99.0 Civilian activity done for income or pay; J45.909 Unspecified asthma, uncomplicated; Z87.442 Personal history of urinary calculi
CPT/HCPCS: 72110; 81025; 99283; J1100; J1885

== ENCOUNTER → 2020-05-23 | Outpatient (CLI) | payer BC ==
[2020-05-23 15:14] LABS: BASOPHILS % 0.4 % (0.0-1.0); EOSINOPHILS # (AUTO) 0.1 (0.0-0.4); EOSINOPHILS % 1.1 % (0.0-6.0); HEMATOCRIT 43.2 % (34.2-44.1); HEMOGLOBIN 13.7 g/dL (12.0-16.0); LYMPHOCYTES # (AUTO) 2.1 (1.0-3.2); LYMPHOCYTES % 22.6 % (18.0-39.1); MEAN CORPUSCULAR HEMOGLOBIN 30.9 pg (28-32); MEAN CORPUSCULAR HGB CONC 31.7 g/dL (31-35); MEAN CORPUSCULAR VOLUME 97.5 fL (81-99); MONOCYTES # (AUTO) 0.7 (0.2-0.8); MONOCYTES % 7.1 % (4.4-11.3); NEUTROPHILS # (AUTO) 6.4 (2.1-6.9); NEUTROPHILS % 68.1 % (38.7-80.0); PLATELET COUNT 215 x10e3/uL (140-360); RED BLOOD COUNT 4.43 x10e6/uL (3.6-5.1); RED CELL DISTRIBUTION WIDTH 12.6 % (11.7-14.4)
[2020-05-23 15:37] LABS: ALANINE AMINOTRANSFERASE 31 IU/L (0-55); ALBUMIN 3.9 g/dL (3.5-5.0); ALBUMIN/GLOBULIN RATIO 1.1 (0.8-2.0); ALKALINE PHOSPHATASE 71 IU/L (40-150); ANION GAP 11.8 mmol/L (8-16); BLOOD UREA NITROGEN 17 mg/dL (7-26); BUN/CREATININE RATIO 23 (6-25); CALCIUM 9.5 mg/dL (8.4-10.2); CARBON DIOXIDE 28 mmol/L (22-29); CHLORIDE 102 mmol/L (98-107); CREATININE, SERUM 0.74 mg/dL (0.57-1.11); EST GLOMERULAR FILTRATION RATE > 60 ML/MIN (60-); GLUCOSE 95 mg/dL (74-118); POTASSIUM 3.8 mmol/L (3.5-5.1); SODIUM 138 mmol/L (136-145)
--- NOTE | 2020-05-23 15:49 | Diagnostic Imaging Report ---
X-ray pelvis AP History: Coccygeal pain for 5 years Comparison: None. Findings: There is misalignment of the coccygeal vertebrae as compared with the lowest sacral elements. There is separation of the second and third coccygeal vertebrae also. The bone margins are sclerotic and smooth suggesting a chronic nature. No other abnormalities. 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 A CT scan with reconstructions can be more informative. Signed by: Greyson Chacon MD on 05/23/2020 3:45 PM
--- NOTE | 2020-05-23 15:54 | Diagnostic Imaging Report ---
X-ray lumbar spine multiple views History: Pain Comparison: 08/02/2019 Findings: 6 lumbar type vertebrae. No fracture, no aggressive bone lesions, no spondylolysis, no spondylolisthesis, no significant facet degeneration, minimal endplate osteophyte in the lower thoracic spine. No other significant soft tissue abnormalities. 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 This has no real clinical significance except for lumbar spinal surgery. No significant abnormality. Signed by: Greyson Chacon MD on 05/23/2020 3:50 PM
[2020-05-23 16:07] LABS: ERYTHROCYTE SEDIMENTATION RATE 8 mm/hr (0-20)
== END ==
LOC: LAB 13:17
PROVIDERS: ATTEND Internal Medicine Rheumatology
DX: L40.50 Arthropathic psoriasis, unspecified (principal); M51.26 Other intervertebral disc displacement, lumbar region
CPT/HCPCS: 36415; 72110; 72190; 80053; 85025; 85651; 86140; 86704; 86803; 87340

== ENCOUNTER 2020-09-26 12:59 | Emergency (ER) | payer BC ==
[~2020-09-26] VITALS: Ht 172.7 cm; Wt 124.9 kg
[2020-09-26] MEDS ORDERED: KETOROLAC TROMETHAMINE 30 MG/ML VIAL IV STA (13:51)
[2020-09-26] MEDS ORDERED: FAMOTIDINE 20 MG/2 ML VIAL IV STA (13:51)
[2020-09-26] MEDS ORDERED: LISINOPRIL-HCT1 EAC2 (14:14)
[2020-09-26] MEDS ORDERED: VITAMIN D310 MCG PO (14:14)
[2020-09-26] MEDS ORDERED: CIMZIA400 MG SQ (14:14)
[2020-09-26] MEDS ORDERED: LYRICA100 MG PO (14:14)
[2020-09-26] MEDS ORDERED: CYCLOBENZAPRINE10 MG PO (14:14)
[2020-09-26] MEDS ORDERED: MULTI-VITAMIN1 EACH (14:14)
[2020-09-26] MEDS ORDERED: FISH OIL 1,0001 EAC3 (14:14)
[2020-09-26] MEDS ORDERED: LYSINE1000 MG (14:14)
[2020-09-26] MEDS ORDERED: PROVENTIL HFA6.7 GM INH (14:14)
[2020-09-26] MEDS ORDERED: PREDNISONE20 MG PO (14:14)
[2020-09-26] MEDS ORDERED: ZIPSOR25 MG (14:14)
[2020-09-26] MEDS ORDERED: FOLIC ACID0.8 MG (14:14)
[2020-09-26] MEDS ORDERED: KETOROLAC TROMETHAMINE 30 MG/ML VIAL ONE (14:34)
[2020-09-26] MEDS ORDERED: FAMOTIDINE 20 MG/2 ML VIAL IV ONE (14:34)
[2020-09-26] MEDS ORDERED: ONDANSETRON ODT8 MG PO (17:16)
[2020-09-26] MEDS ORDERED: FIORICET 50-301 EACH PO (17:17)
[2020-09-26 17:35] VITALS: BP 140/79
== END 2020-09-26 17:31 | disposition home or self-care (01) ==
LOC: FSED 13:20
DX: R07.9 Chest pain, unspecified (principal); G44.209 Tension-type headache, unspecified, not intractable; I10 Essential (primary) hypertension; F41.9 Anxiety disorder, unspecified; M32.9 Systemic lupus erythematosus, unspecified; L40.50 Arthropathic psoriasis, unspecified; M79.7 Fibromyalgia
CPT/HCPCS: 71046; 80048; 80076; 81003; 81025; 82553; 84484; 85025; 85379; 93005; 96374; 96375; 99284; J1885

== ENCOUNTER → 2021-04-17 | Outpatient (CLI) | payer OTHER ==
[~2021-04-17] MED LIST changes: +CIMZIA400 MG SQ; +CYCLOBENZAPRINE10 MG PO; +FIORICET 50-301 EACH PO; +FISH OIL 1,0001 EAC3; +FOLIC ACID0.8 MG; +LISINOPRIL-HCT1 EAC2; +LYRICA100 MG PO; +LYSINE1000 MG; +MULTI-VITAMIN1 EACH; +ONDANSETRON ODT8 MG PO; +PROVENTIL HFA6.7 GM INH; +VITAMIN D310 MCG PO; +ZIPSOR25 MG
== END ==
LOC: MRI 13:11
PROVIDERS: ATTEND Anesthesiology Pain Medicine
DX: M54.2 Cervicalgia (principal); M54.5 Low back pain
CPT/HCPCS: 72141; 72148

== ENCOUNTER 2021-08-14 14:16 | Emergency (ER) | payer OTHER ==
[~2021-08-14] VITALS: Ht 172.7 cm; Wt 124.7 kg
[2021-08-14] MEDS ORDERED: ACETAMINOPHEN 325 MG TAB PO PRN (14:30)
[2021-08-14] MEDS ORDERED: ONDANSETRON HCL 4 MG ORAL DISINTEGRATING TAB PO ONE (14:30)
[2021-08-14 14:42] LABS: BASOPHILS # (AUTO) 0.1 (0.0-0.1); BASOPHILS % 0.8 % (0.0-1.0); EOSINOPHILS # (AUTO) 0.2 (0.0-0.4); EOSINOPHILS % 2.1 % (0.0-6.0); HEMATOCRIT 43.3 % (34.2-44.1); HEMOGLOBIN 14.1 g/dL (12.0-16.0); LYMPHOCYTES # (AUTO) 3.1 (1.0-3.2); LYMPHOCYTES % 35.7 % (18.0-39.1); MEAN CORPUSCULAR HEMOGLOBIN 31.2 pg (28-32); MEAN CORPUSCULAR HGB CONC 32.6 g/dL (31-35); MEAN CORPUSCULAR VOLUME 95.8 fL (81-99); MONOCYTES # (AUTO) 0.8 (0.2-0.8); MONOCYTES % 8.9 % (4.4-11.3); NEUTROPHILS # (AUTO) 4.5 (2.1-6.9); NEUTROPHILS % 51.8 % (38.7-80.0); PLATELET COUNT 215 x10e3/uL (140-360); RED BLOOD COUNT 4.52 x10e6/uL (3.6-5.1); RED CELL DISTRIBUTION WIDTH 12.3 % (11.7-14.4)
[2021-08-14 15:04] LABS: ALBUMIN 4.2 g/dL (3.5-5.0); ALBUMIN/GLOBULIN RATIO 1.2 (0.8-2.0); CALCIUM 9.1 mg/dL (8.4-10.2); CREATININE, SERUM 0.97 mg/dL (0.57-1.11)
== END 2021-08-14 16:43 | disposition home or self-care (01) ==
LOC: ER 14:24
DX: R51.9 Headache, unspecified (principal); R42 Dizziness and giddiness; I10 Essential (primary) hypertension; M32.9 Systemic lupus erythematosus, unspecified; F41.9 Anxiety disorder, unspecified; M79.7 Fibromyalgia; L40.50 Arthropathic psoriasis, unspecified; D84.81 Immunodeficiency due to conditions classified elsewhere
CPT/HCPCS: 36415; 70450; 71045; 80053; 84484; 85025; 93005; 99283; Q0162

== ENCOUNTER 2021-12-18 20:09 | Emergency (ER) | payer BC, OTHER ==
[~2021-12-18] VITALS: Ht 172.7 cm; Wt 131.5 kg
[2021-12-18] MEDS ORDERED: Morphine 4mg Syringe 4 MG/ML INJ IV STA (20:17)
[2021-12-18] MEDS ORDERED: SODIUM CHLORIDE 0.9% 1000ML 1,000 ML IV STA (20:17)
[2021-12-18] MEDS ORDERED: ONDANSETRON HCL INJ 2MG/ML 2ML 2 MG/ML VIAL IV STA (20:17)
[2021-12-18 20:47] LABS: BASOPHILS % 0.3 % (0.0-1.0); EOSINOPHILS # (AUTO) 0.2 (0.0-0.4); EOSINOPHILS % 2.3 % (0.0-6.0); HEMATOCRIT 43.6 % (34.2-44.1); LYMPHOCYTES # (AUTO) 1.4 (1.0-3.2); LYMPHOCYTES % 20.3 % (18.0-39.1); MEAN CORPUSCULAR HEMOGLOBIN 31.7 pg (28-32); MEAN CORPUSCULAR HGB CONC 32.1 g/dL (31-35); MEAN CORPUSCULAR VOLUME 98.9 fL (81-99); MONOCYTES # (AUTO) 0.7 (0.2-0.8); MONOCYTES % 10.5 % (4.4-11.3); NEUTROPHILS # (AUTO) 4.6 (2.1-6.9); NEUTROPHILS % 65.2 % (38.7-80.0); PLATELET COUNT 189 x10e3/uL (140-360); RED BLOOD COUNT 4.41 x10e6/uL (3.6-5.1); RED CELL DISTRIBUTION WIDTH 12.6 % (11.7-14.4)
[2021-12-18 20:49] LABS: CLARITY,URINE CLEAR (CLEAR); COLOR,URINE YELLOW (YELLOW); KETONES,URINE NEGATIVE (NEGATIVE); LEUKOCYTE ESTERASE ,URINE NEGATIVE (NEGATIVE); NITRITE,URINE NEGATIVE (NEGATIVE); PROTEIN,URINE DIPSTICK NEGATIVE (NEGATIVE); URINE UROBILINOGEN 0.2 mg/dL (0.2 - 1)
[2021-12-18 21:04] LABS: ALBUMIN 3.7 g/dL (3.5-5.0); ANION GAP 12.9 mmol/L (8-16); CALCIUM 8.9 mg/dL (8.4-10.2); CREATININE, SERUM 0.81 mg/dL (0.57-1.11); POTASSIUM 3.9 mmol/L (3.5-5.1)
[2021-12-18 21:10] LABS: BACTERIA,URINE MODERATE /HPF; EPITHELIAL CELLS,URINE MODERATE /LPF; MUCUS,URINE MODERATE (RARE)
[2021-12-18] MEDS ORDERED: PROMETHAZINE 25MG/ NS 50ML (IV) IV STA (21:31)
[2021-12-18] MEDS ORDERED: IOPAMIDOL 370 MG/ML 200 ML INFUS..BTL INJ ONE (21:58)
[2021-12-18] MEDS ORDERED: SODIUM CHLORIDE 0.9% 50ML 50 ML ONE (21:58)
[2021-12-18] MEDS ORDERED: CIPRO500 MG PO (22:12)
[2021-12-18] MEDS ORDERED: ONDANSETRON ODT4 MG PO (22:12)
[2021-12-18] MEDS ORDERED: CIPROFLOXACIN 500 MG TAB PO STA (22:14)
[2021-12-18 22:39] VITALS: BP 135/89
== END 2021-12-18 22:40 | disposition home or self-care (01) ==
LOC: ER 20:18
DX: R10.13 Epigastric pain (principal); N39.0 Urinary tract infection, site not specified; R11.2 Nausea with vomiting, unspecified; I10 Essential (primary) hypertension; M32.9 Systemic lupus erythematosus, unspecified; F41.9 Anxiety disorder, unspecified; J45.909 Unspecified asthma, uncomplicated; M79.7 Fibromyalgia; Z20.822 Contact with and (suspected) exposure to COVID-19; Z87.442 Personal history of urinary calculi
CPT/HCPCS: 36415; 74177; 80053; 81001; 81025; 83690; 85025; 99284; J2270; J2405; J2550; J7030; Q9967; U0002

== ENCOUNTER 2022-04-06 07:24 | Inpatient (IN) | payer BC ==
[2022-04-02 16:02] LABS: BASOPHILS # (AUTO) 0.1 (0.0-0.1); BASOPHILS % 0.6 % (0.0-1.0); EOSINOPHILS # (AUTO) 0.2 (0.0-0.4); EOSINOPHILS % 1.7 % (0.0-6.0); HEMATOCRIT 40.7 % (34.2-44.1); HEMOGLOBIN 13.1 g/dL (12.0-16.0); LYMPHOCYTES % 34.9 % (18.0-39.1); MEAN CORPUSCULAR HEMOGLOBIN 31.6 pg (28-32); MEAN CORPUSCULAR HGB CONC 32.2 g/dL (31-35); MEAN CORPUSCULAR VOLUME 98.3 fL (81-99); MONOCYTES # (AUTO) 0.6 (0.2-0.8); NEUTROPHILS # (AUTO) 4.8 (2.1-6.9); NEUTROPHILS % 55.3 % (38.7-80.0); PLATELET COUNT 203 x10e3/uL (140-360); RED BLOOD COUNT 4.14 x10e6/uL (3.6-5.1); RED CELL DISTRIBUTION WIDTH 12.5 % (11.7-14.4)
[2022-04-02 16:28] LABS: ANION GAP 12.7 mmol/L (8-16); CALCIUM 8.2 mg/dL (8.4-10.2); CREATININE, SERUM 0.7 mg/dL (0.57-1.11); POTASSIUM 3.7 mmol/L (3.5-5.1)
[~2022-04-06] VITALS: Ht 172.7 cm; Wt 130.6 kg
[~2022-04-06 07:24] MED LIST changes: +BUPIVACAINE 0.25% 30ML SDV ONE; +CIPRO500 MG PO; +LEXAPRO10 MG PO; +ONDANSETRON ODT4 MG PO
[2022-04-06] MEDS: SODIUM CHLORIDE 0.9% 1000ML 1,000 ML IV SCH ×3 (09:15→22:36)
[2022-04-06] MEDS ORDERED: Morphine 2mg Syringe 2 MG/ML SYR IV PRN (09:15)
[2022-04-06] MEDS ORDERED: ONDANSETRON HCL INJ 2MG/ML 2ML 2 MG/ML VIAL ONE ×2 (09:24→13:26)
[2022-04-06] MEDS ORDERED: FENTANYL CITRATE/PF 100MCG/2 ML INJ ONE ×3 (09:25→12:54)
[2022-04-06] MEDS ORDERED: PROMETHAZINE HCL (IM) 25 MG/ML VIAL IM ONE (10:07)
[2022-04-06] MEDS ORDERED: HYDRALAZINE HCL 20 MG/ML VIAL IV PRN (11:15)
[2022-04-06] MEDS ORDERED: ALBUTEROL SULFATE HFA 8GM INHALATION AEROSOL INH PRN (11:15)
[2022-04-06 11:48] VITALS: BP 156/84
[2022-04-06 12:05] VITALS: BP 143/88
[2022-04-06] MEDS ORDERED: ACETAMINOPHEN 325 MG TAB PO PRN (12:15)
[2022-04-06] MEDS ORDERED: MIDAZOLAM HCL 5 MG/ML VIAL ONE (12:54)
[2022-04-06] MEDS ORDERED: ATROPINE SULFATE 1 MG/ML VIAL ONE (13:26)
[2022-04-06] MEDS ORDERED: PROPOFOL IV EMULSION 10 MG/ML 20 ML VIAL ONE (13:26)
[2022-04-06] MEDS ORDERED: KETOROLAC TROMETHAMINE 30 MG/ML VIAL ONE (13:26)
[2022-04-06] MEDS ORDERED: LABETALOL HCL 5 MG/ML 20ML VIAL ONE (13:26)
[2022-04-06] MEDS ORDERED: POVIDONE IODINE 0.05% 0.05 % ML PO ONE (13:26)
[2022-04-06] MEDS ORDERED: LIDOCAINE HCL 2% LOCAL INJ 5 ML SDV VIAL INJ ONE (13:26)
[2022-04-06] MEDS ORDERED: ROCURONIUM BROMIDE 10 MG/ML 5ML VIAL IV ONE (13:26)
[2022-04-06] MEDS ORDERED: NEOSTIGMINE 1 MG/ML 10ML VIAL ONE (13:26)
[2022-04-06] MEDS ORDERED: DEXAMETHASONE SOD PHOS INJ 4 MG/ML SDV ONE (13:26)
[2022-04-06] MEDS ORDERED: SUCCINYLCHOLINE CHLORIDE 20 MG/ML 10ML VIAL ONE (13:26)
[2022-04-06] MEDS ORDERED: SEVOFLURANE INHAL SOLN 250 ML PEN BTL ONE (13:26)
[2022-04-06] MEDS: HYDROMORPHONE 1MG/1ML INJ IV PRN ×2 (15:00→19:03)
[2022-04-06] MEDS: LORAZEPAM INJ 2 MG/ML VIAL IV PRN ×2 (15:00→21:18)
[2022-04-06 15:52] VITALS: BP 109/53
[2022-04-06] MEDS: ONDANSETRON HCL INJ 2MG/ML 2ML 2 MG/ML VIAL IV PRN (19:35)
[2022-04-06 20:00] VITALS: BP 114/58
[2022-04-06] MEDS: ENOXAPARIN SOD INJ 40 MG/0.4 ML SYR SC SCH (21:18)
[2022-04-06 22:38] VITALS: BP 114/58
[2022-04-07] VITALS (8 sets, daily range): BP systolic 107–146; BP diastolic 56–77
[2022-04-07] MEDS: HYDROMORPHONE 1MG/1ML INJ IV PRN ×6 (00:15→21:49)
[2022-04-07] MEDS: ONDANSETRON HCL INJ 2MG/ML 2ML 2 MG/ML VIAL IV PRN ×5 (02:53→21:49)
[2022-04-07] MEDS: LORAZEPAM INJ 2 MG/ML VIAL IV PRN ×3 (04:28→20:17)
[2022-04-07 07:12] LABS: BASOPHILS % 0.2 % (0.0-1.0); EOSINOPHILS % 0.1 % (0.0-6.0); HEMATOCRIT 38.8 % (34.2-44.1); HEMOGLOBIN 11.9 g/dL (12.0-16.0); LYMPHOCYTES # (AUTO) 2.2 (1.0-3.2); LYMPHOCYTES % 18.8 % (18.0-39.1); MEAN CORPUSCULAR HEMOGLOBIN 31.5 pg (28-32); MEAN CORPUSCULAR HGB CONC 30.7 g/dL (31-35); MEAN CORPUSCULAR VOLUME 102.6 fL (81-99); MONOCYTES % 9.1 % (4.4-11.3); NEUTROPHILS # (AUTO) 8.2 (2.1-6.9); NEUTROPHILS % 71.5 % (38.7-80.0); PLATELET COUNT 213 x10e3/uL (140-360); RED BLOOD COUNT 3.78 x10e6/uL (3.6-5.1); RED CELL DISTRIBUTION WIDTH 12.7 % (11.7-14.4)
[2022-04-07 07:31] LABS: CALCIUM 7.6 mg/dL (8.4-10.2); CREATININE, SERUM 0.76 mg/dL (0.57-1.11); MAGNESIUM 2.1 MG/DL (1.3-2.1); PHOSPHORUS 2.4 MG/DL (2.3-4.7)
[2022-04-07] MEDS: SODIUM CHLORIDE 0.9% 1000ML 1,000 ML IV SCH ×2 (09:04→16:44)
[2022-04-07] MEDS: ENOXAPARIN SOD INJ 40 MG/0.4 ML SYR SC SCH ×2 (09:04→20:17)
[2022-04-07] MEDS: HYDROCODONE/APAP 7.5MG-325MG 1 EA TAB PO PRN (20:17)
[2022-04-08 00:11] VITALS: BP 119/70
[2022-04-08] MEDS: HYDROCODONE/APAP 7.5MG-325MG 1 EA TAB PO PRN (00:44)
[2022-04-08] MEDS: SODIUM CHLORIDE 0.9% 1000ML 1,000 ML IV SCH (01:15)
[2022-04-08] MEDS: ONDANSETRON HCL INJ 2MG/ML 2ML 2 MG/ML VIAL IV PRN ×3 (03:06→13:04)
[2022-04-08] MEDS: HYDROMORPHONE 1MG/1ML INJ IV PRN ×3 (03:06→13:04)
[2022-04-08 05:46] VITALS: BP 130/67
[2022-04-08] MEDS: LORAZEPAM INJ 2 MG/ML VIAL IV PRN (06:07)
[2022-04-08 06:09] LABS: BASOPHILS % 0.5 % (0.0-1.0); EOSINOPHILS % 0.4 % (0.0-6.0); HEMATOCRIT 37.5 % (34.2-44.1); HEMOGLOBIN 11.7 g/dL (12.0-16.0); LYMPHOCYTES % 34.9 % (18.0-39.1); MEAN CORPUSCULAR HEMOGLOBIN 31.3 pg (28-32); MEAN CORPUSCULAR HGB CONC 31.2 g/dL (31-35); MEAN CORPUSCULAR VOLUME 100.3 fL (81-99); MONOCYTES # (AUTO) 0.7 (0.2-0.8); MONOCYTES % 8.5 % (4.4-11.3); NEUTROPHILS # (AUTO) 4.7 (2.1-6.9); NEUTROPHILS % 55.2 % (38.7-80.0); PLATELET COUNT 173 x10e3/uL (140-360); RED BLOOD COUNT 3.74 x10e6/uL (3.6-5.1); RED CELL DISTRIBUTION WIDTH 12.6 % (11.7-14.4)
[2022-04-08 08:02] VITALS: BP 114/61
[2022-04-08 08:34] VITALS: BP 114/61
[2022-04-08] MEDS: ENOXAPARIN SOD INJ 40 MG/0.4 ML SYR SC SCH (09:00)
[2022-04-08 11:39] VITALS: BP 131/84
[2022-04-08] MEDS ORDERED: ACETAMINOPHEN-1 EAC4 PO (12:04)
[2022-04-08] MEDS ORDERED: ONDANSETRON ODT4 MG PO (12:04)
[2022-04-08 15:21] VITALS: BP 122/54
== END 2022-04-08 15:40 | disposition home or self-care (01) | DRG 621 ==
LOC: OR 07:24 → PACU V 09:09 → MED/SURG3 11:48
PROVIDERS: ADMIT Internal Medicine; ATTEND Internal Medicine
PROC: 0DB64Z3 Excision of Stomach, Percutaneous Endoscopic Approach, Vertical (ICD-10-PCS; principal; 2022-04-06 07:44)
DX: E66.01 Morbid (severe) obesity due to excess calories (principal); Z68.41 Body mass index [BMI] 40.0-44.9, adult; I10 Essential (primary) hypertension; J45.909 Unspecified asthma, uncomplicated; M06.9 Rheumatoid arthritis, unspecified; Z90.49 Acquired absence of other specified parts of digestive tract; Z82.3 Family history of stroke; Z84.89 Family history of other specified conditions; Z20.822 Contact with and (suspected) exposure to COVID-19
CPT/HCPCS: 36415; 71046; 80048; 81025; 83735; 84100; 85025; 93005; 94799; 96361; 99251; C1713; J0330; J0461; J0690; J1100; J1170; J1650; J1885; J2001; J2060; J2250; J2270; J2405; J2550; J2710; J3010; J7030; U0002

== ENCOUNTER 2022-04-16 13:37 | Emergency (ER) | payer BC ==
[~2022-04-16] VITALS: Ht 172.7 cm; Wt 130.6 kg
[~2022-04-16 13:37] MED LIST changes: +ACETAMINOPHEN-1 EAC4 PO; -BUPIVACAINE 0.25% 30ML SDV ONE
[2022-04-16] MEDS ORDERED: LACTATED RINGER'S 1,000 ML IV ONE (14:30)
[2022-04-16 14:44] LABS: ALBUMIN 3.9 g/dL (3.5-5.0); ANION GAP 16.3 mmol/L (8-16); CALCIUM 9.1 mg/dL (8.4-10.2); CREATININE, SERUM 0.81 mg/dL (0.57-1.11); POTASSIUM 4.3 mmol/L (3.5-5.1)
[2022-04-16 15:16] LABS: BASOPHILS # (AUTO) 0.1 (0.0-0.1); BASOPHILS % 0.6 % (0.0-1.0); EOSINOPHILS # (AUTO) 0.1 (0.0-0.4); EOSINOPHILS % 0.9 % (0.0-6.0); HEMOGLOBIN 16.1 g/dL (12.0-16.0); LYMPHOCYTES # (AUTO) 1.8 (1.0-3.2); LYMPHOCYTES % 19.8 % (18.0-39.1); MEAN CORPUSCULAR HEMOGLOBIN 31.5 pg (28-32); MEAN CORPUSCULAR HGB CONC 31.6 g/dL (31-35); MEAN CORPUSCULAR VOLUME 99.8 fL (81-99); MONOCYTES # (AUTO) 0.6 (0.2-0.8); MONOCYTES % 7.1 % (4.4-11.3); NEUTROPHILS # (AUTO) 6.4 (2.1-6.9); PLATELET COUNT 197 x10e3/uL (140-360); RED BLOOD COUNT 5.11 x10e6/uL (3.6-5.1); RED CELL DISTRIBUTION WIDTH 12.7 % (11.7-14.4)
[2022-04-16 16:10] VITALS: BP 115/69
== END 2022-04-16 16:12 | disposition home or self-care (01) ==
LOC: ER 13:42
DX: E86.0 Dehydration (principal); I10 Essential (primary) hypertension; J45.909 Unspecified asthma, uncomplicated; L40.50 Arthropathic psoriasis, unspecified; F41.9 Anxiety disorder, unspecified; Z98.84 Bariatric surgery status
CPT/HCPCS: 36415; 80053; 85025; 93005; 99283; J7121